=== PATIENT | male | born 1950 | race Caucasian/White ===

== ENCOUNTER → 2022-04-22 | Day surgery (SDC) | payer BC ==
[~2022-04-22] MED LIST: Lidocaine Jelly 2% Urojet 10 ML ONE
== END | disposition home or self-care (01) ==
LOC: SDC 13:27
PROVIDERS: ATTEND Internal Medicine Gastroenterology
DX: K21.9 Gastro-esophageal reflux disease without esophagitis (principal); R13.10 Dysphagia, unspecified
CPT/HCPCS: 91010; J2001

== ENCOUNTER 2022-09-30 13:22 | Emergency (ER) | payer BC ==
[~2022-09-30 13:22] MED LIST changes: +Iopamidol-370 76% 500 ML MDV (1 ML CHARGE) ONE; -Lidocaine Jelly 2% Urojet 10 ML ONE
[2022-09-30 13:56] LABS: #Eosinphils 0.1 thou/uL (0.0-0.7); #Monocytes 0.7 thou/uL (0.11-0.59); %Basophils 0.4 % (0.0-1.0); %Eosinophils 1.2 % (0.0-10.0); %Lymphocytes 35.1 % (21.0-51.0); %Monocytes 9.1 % (0.0-10.0); %Neutrophils 54.1 % (42.0-75.0); Hematocrit 45.6 % (42.0-52.0); Hemoglobin 16.4 g/dL (14.0-18.0); Mean Corpuscular Hemoglobin 33.1 pg (27.0-31.0); Mean Corpuscular Volume 92.1 fl (78.0-98.0); Mean Platelet Volume 10.2 fL (7.4-10.4); Platelet Count 208 10x3/uL (130-400); RBC Distribution Width 12.6 % (11.5-14.5); Red Blood Cell (RBC) Count 4.95 mill/uL (4.70-6.10); White Blood Cell (WBC) Count 7.3 10x3/uL (4.8-10.8)
[2022-09-30] MEDS ORDERED: Ondansetron PF 4 MG/2 ML Vial ONE (13:58)
[2022-09-30] MEDS ORDERED: Morphine 4 MG/ML VIAL ONE (13:58)
[2022-09-30 14:08] LABS: Bacteria/HPF None Seen HPF (None Seen); Bilirubin Negative (Negative); Blood, Urine Negative (Negative); CAUTI Indications for Culture Pelvic or flank pain; Clarity Clear (Clear); Glucose, Urine (Dipstick) Normal (Negative); Ketone, Urine Negative (Negative); Leukocyte Negative Leu/uL (Negative); Nitrite Negative (Negative); Protein, Urine (Dipstick) Negative (Neg-Trace); RBC/HPF 0-3 HPF (0-3); Specific Gravity, Urine 1.013 (1.002-1.036); Squamous Epithelial None Seen HPF (0-3); Urobilinogen Normal mg/dL (Less than 2); WBC/HPF None Seen HPF (0-3)
[2022-09-30 14:09] LABS: Urine Culture Reflex No No
[2022-09-30 14:19] LABS: ALT (SGPT) 22 U/L (8-55); AST (SGOT) 22 U/L (5-34); Albumin 4.1 g/dL (3.4-4.8); Alkaline Phosphatase 38 U/L (40-110); Anion Gap 13 mmol/L (10-20); BUN (Urea Nitrogen) 18 mg/dL (8.4-25.7); Bilirubin, Total 0.5 mg/dL (0.2-1.2); Calc. Creatinine Clearance 0 mL/min (70-130); Calcium 9.5 mg/dL (7.8-10.44); Carbon Dioxide 25 mmol/L (23-31); Chloride 101 mmol/L (98-107); Estimated GFR 88; Globulin 2.8 g/dL (2.4-3.5); Glucose 131 mg/dL (80-115); Lipase 18 U/L (8-78); Potassium 3.7 mmol/L (3.5-5.1); Protein, Total 6.9 g/dL (5.8-8.1); Sodium 135 mmol/L (136-145)
[2022-09-30] MEDS ORDERED: Calcium Carbonate 500 MG ChewTAB PO SCH (14:45)
[2022-09-30] MEDS ORDERED: Calcium Carbonate 500 MG TAB PO SCH (14:45)
== END 2022-09-30 15:10 | disposition home or self-care (01) ==
LOC: ERS 13:22
DX: R10.9 Unspecified abdominal pain (principal); E78.5 Hyperlipidemia, unspecified; I10 Essential (primary) hypertension; Z79.82 Long term (current) use of aspirin; Z79.899 Other long term (current) drug therapy
CPT/HCPCS: 74178; 80053; 81001; 83690; 85025; 96374; 96375; J2270; J2405; Q9967

== ENCOUNTER 2022-10-10 07:54 | Outpatient (CLI) | payer BC | END 2022-10-10 07:55 | disposition home or self-care (01) | LOC: SCSMRI 07:54 | PROVIDERS: ATTEND Internal Medicine | DX: M25.552 Pain in left hip (principal) ==